=== PATIENT | female | born 1995 | race Two or more races ===

== ENCOUNTER 2020-03-15 14:08 | Emergency (ER) | payer OTHER ==
[~2020-03-15] VITALS: Ht 167.6 cm; Wt 110.7 kg
[2020-03-15 14:10] VITALS: Ht 167.6 cm; Wt 110.7 kg
[2020-03-15 14:32] VITALS: BP 114/63
== END 2020-03-15 14:32 | disposition home or self-care (01) ==
LOC: ED 14:08
DX: R50.9 Fever, unspecified (principal); M79.10 Myalgia, unspecified site; Z20.828 Contact with and (suspected) exposure to other viral communicable diseases
CPT/HCPCS: U0003-CS

== ENCOUNTER 2020-06-25 00:55 | Emergency (ER) | payer OTHER ==
[~2020-06-25] VITALS: Ht 167.6 cm; Wt 99.8 kg
[2020-06-25 00:59] VITALS: Ht 167.6 cm; Wt 99.8 kg
[2020-06-25 01:28] LABS: ALBUMIN 3.7 g/dL (3.4-5.0); ALKALINE PHOSPHATASE 79 U/L (46-116); ALT/SGPT 22 U/L (14-59); AST/SGOT 12 U/L (15-37); BILIRUBIN TOTAL 0.49 mg/dL (0.20-1.00); CALCIUM 9.3 mg/dL (8.5-10.1); CARBON DIOXIDE 21.6 mmol/L (21-32); CHLORIDE SERUM 98 mmol/L (98-107); CREATININE SERUM 1.1 mg/dL (0.6-1.0); GFR1 > 60 mL/min; POTASSIUM SERUM 4.4 mmol/L (3.5-5.1); SODIUM SERUM 132 mmol/L (136-145); TOTAL PROTEIN, SERUM 7.9 g/dL (6.4-8.2)
[2020-06-25 01:34] LABS: BASOPHIL % 0.2 % (0-2); PLATELET COUNT 339 x10^3mcL (130-400); RED CELL DISTRIBUTION WIDTH 13.4 % (11.5-14.5)
[2020-06-25 01:36] LABS: GLUCOSE SERUM 471 mg/dL (74-106)
[2020-06-25 02:31] LABS: AMPHETAMINE QUAL UR NONE DETECTED (See below)
[2020-06-25 05:25] VITALS: BP 133/82
== END 2020-06-25 05:25 | disposition home or self-care (01) ==
LOC: ED 00:55
PROVIDERS: Emergency Medicine
DX: F41.9 Anxiety disorder, unspecified (principal); R73.9 Hyperglycemia, unspecified; I10 Essential (primary) hypertension
CPT/HCPCS: 82962; G0480; J7030